=== PATIENT | female | born 1945 | race Caucasian/White ===

== ENCOUNTER 2016-08-23 08:06 | Emergency (ER) | payer MEDICARE, BC ==
[2016-08-23 08:20] VITALS: BP 160/81
--- NOTE | 2016-08-23 10:13 | EDM.PDOC ---
ED HPI GENERAL MEDICAL PROBLEM - General Chief Complaint: ENT Problem Stated Complaint: HURTS TO SWALLOW/PAIN IN THROAT & JAW LINE Time Seen by Provider: 08/23/16 08:43 Source of Information: Reports: Patient History Limitations: Reports: No Limitations - History of Present Illness INITIAL COMMENTS - FREE TEXT/NARRATIVE: History of present illness: [Patient has a history of lupus on prednisone and is presenting with a sore throat. Trouble swallowing. No fever. Has not been exposed to strep.] Review of systems: As per history of present illness and below otherwise all systems reviewed and negative. Past medical history: As per history of present illness and as reviewed below otherwise noncontributory. Surgical history: As per history of present illness and as reviewed below otherwise noncontributory. Social history: No reported history of drug or alcohol abuse. Family history: As per history of present illness and as reviewed below otherwise noncontributory. Physical exam: HEENT: Atraumatic, normocephalic, posterior pharynx is quite erythematous without exudate she did have a white tongue and so we did a BRICE prep on that which was negative. Lungs: Clear to auscultation, breath sounds equal bilaterally, chest nontender. Heart: S1S2, regular, negative for clicks, rubs, or JVD. Abdomen: Soft, nondistended, nontender. Negative for masses or hepatosplenomegaly. Negative for costovertebral tenderness. Pelvis: Stable nontender. Genitourinary: Deferred. Rectal: Deferred. Extremities: Atraumatic, . Neurovascular unremarkable. Neuro: Awake, alert, oriented. Exam nonfocal. Diagnostics: [Rapid strep is positive] Therapeutics: [] Impression: [Strep pharyngitis] Plan: [Keflex 500 mg 1 by mouth 4 times a day for 10 days. ] Definitive disposition and diagnosis as appropriate pending reevaluation and review of above. Throat Pain Score (Numeric/FACES): 9 - Related Data Allergies Allergy/AdvReac Type Severity Reaction Status Date / Time venom-honey bee Allergy Cannot Verified 08/31/14 07:22 [bee venom (honey bee)] Remember Home Meds: Home Meds Albuterol Sulfate [Albuterol Sulfate HFA] 2 puff INH Q4HR PRN 12/29/13 [History] Cholecalciferol (Vitamin D3) [Vitamin D] 2,000 unit PO DAILY 12/29/13 [History] Citalopram Hydrobromide [Celexa] 40 mg PO DAILY 12/29/13 [History] Cyanocobalamin (Vitamin B-12) [B-12] 500 mcg PO DAILY 12/29/13 [History] Fluticasone/Salmeterol [Advair 250-50 Diskus] 1 puff INH BID PRN 12/29/13 [ History] Hydrochlorothiazide/Losartan [Hyzaar 100-12.5 MG] 1 tab PO DAILY 12/29/13 [ History] Hydroxychloroquine Sulfate [Plaquenil] 400 mg PO DAILY 12/29/13 [History] Levothyroxine Sodium [Synthroid] 25 mcg PO DAILY 12/29/13 [History] Mirtazapine [Remeron] 15 mg PO BEDTIME 12/29/13 [History] Montelukast [Singulair] 10 mg PO DAILY PRN 12/29/13 [History] Ranitidine [Zantac] 150 mg PO DAILY PRN 12/29/13 [History] Simvastatin [Zocor] 80 mg PO DAILY 12/29/13 [History] Triamcinolone Acetonide [Kenalog 0.1% Crm] 1 applic TOP BID 12/29/13 [History] Zolpidem Tartrate [Ambien] 10 mg PO ASDIRECTED PRN 12/29/13 [History] clonazePAM [Klonopin] 1 mg PO BID PRN 12/29/13 [History] Past Medical History HEENT History: Reports: Impaired Vision Cardiovascular History: Reports: High Cholesterol, Hypertension Respiratory History: Reports: Asthma Other Musculoskeletal History: LUPUS AND SHOGREN'S DISEASE Immunologic History: Reports: Other (See Below) Other Immunologic History: lupus - Infectious Disease History Infectious Disease History: Reports: Chicken Pox, Measles, Mumps - Past Surgical History Other Cardiovascular Surgeries/Procedures: ANGIOGRAM GI Surgical History: Reports: Appendectomy Other Oncologic Surgeries/Procedures: HYSTERECTOMY Social & Family History - Tobacco Use Smoking Status *Q: Current Every Day Smoker Years of Tobacco use: 50 Packs/Tins Daily: 1 Used Tobacco, but Quit: No Month Tobacco Last Used: AUGUST Second Hand Smoke Exposure: No - Caffeine Use Caffeine Use: Reports: Coffee - Alcohol Use Days Per Week of Alcohol Use: 0 - Recreational Drug Use Recreational Drug Use: No ED ROS ENT - Review of Systems Review Of Systems: ROS reveals no pertinent complaints other than HPI. ED EXAM, ENT - Physical Exam Exam: See Below Course - Vital Signs Last Recorded V/S: Last Vital Signs Temp 37.4 C 08/23/16 08:18 Pulse 85 08/23/16 08:18 Resp 20 08/23/16 08:18 BP 160/81 H 08/23/16 08:18 Pulse Ox 94 L 08/23/16 08:18 Departure - Departure Time of Disposition: 10:11 Disposition: Home, Self-Care 01 Condition: Good Clinical Impression: Strep pharyngitis - Discharge Information Forms: ED Department Discharge Additional Instructions: Your strep test did come back positive so it's good that we did check for that. Again I apologize for the mixup on our testing. It's important to complete the full course of antibiotics that were prescribing. Sometimes strep can cause an abscess in the back of your throat. If this occurs a swelling develop in the back of your throat making it even more difficult to swallow and/or breathe and if this happens you need to return to the emergency room.
== END 2016-08-23 10:21 | disposition home or self-care (01) ==
LOC: JP.ED 08:06
DX: J02.0 Streptococcal pharyngitis (principal); H54.7 Unspecified visual loss; E78.00 Pure hypercholesterolemia, unspecified; I10 Essential (primary) hypertension; J45.909 Unspecified asthma, uncomplicated; F17.210 Nicotine dependence, cigarettes, uncomplicated; Z91.030 Bee allergy status; Z79.899 Other long term (current) drug therapy; Z90.710 Acquired absence of both cervix and uterus; Z90.49 Acquired absence of other specified parts of digestive tract
CPT/HCPCS: 87220; 87430; 99283

== ENCOUNTER 2022-11-12 08:10 | Day surgery (SDC) | payer MEDICARE, OTHER ==
[2022-11-12] MEDS ORDERED: Sodium Chloride 0.9% 10 ML Syringe FLUSH SCH (08:30)
[2022-11-12 09:29] VITALS: BP 138/60; PULSE 68
== END 2022-11-12 09:30 | disposition home or self-care (01) ==
LOC: JP.SDS 08:10
PROVIDERS: ATTEND Ophthalmology
DX: H26.9 Unspecified cataract (principal); J44.9 Chronic obstructive pulmonary disease, unspecified; I25.10 Atherosclerotic heart disease of native coronary artery without angina pectoris; F41.9 Anxiety disorder, unspecified; I12.9 Hypertensive chronic kidney disease with stage 1 through stage 4 chronic kidney disease, or unspecified chronic kidney disease; N18.9 Chronic kidney disease, unspecified; E03.9 Hypothyroidism, unspecified; R91.8 Other nonspecific abnormal finding of lung field; M32.9 Systemic lupus erythematosus, unspecified; E66.9 Obesity, unspecified; Z91.030 Bee allergy status; Z68.34 Body mass index [BMI] 34.0-34.9, adult
CPT/HCPCS: 66984; J3490; V2632

== ENCOUNTER 2022-11-26 07:55 | Day surgery (SDC) | payer MEDICARE, OTHER ==
[2022-11-26 08:31] VITALS: BP 162/75; PULSE 75
[2022-11-26] MEDS: Sodium Chloride 0.9% 10 ML Syringe FLUSH SCH (08:38)
== END 2022-11-26 09:30 | disposition home or self-care (01) ==
LOC: JP.SDS 07:55
PROVIDERS: ATTEND Ophthalmology
DX: H26.9 Unspecified cataract (principal); J44.9 Chronic obstructive pulmonary disease, unspecified; I25.10 Atherosclerotic heart disease of native coronary artery without angina pectoris; F41.9 Anxiety disorder, unspecified; I12.9 Hypertensive chronic kidney disease with stage 1 through stage 4 chronic kidney disease, or unspecified chronic kidney disease; E11.22 Type 2 diabetes mellitus with diabetic chronic kidney disease; N18.9 Chronic kidney disease, unspecified; E03.9 Hypothyroidism, unspecified; F17.200 Nicotine dependence, unspecified, uncomplicated
CPT/HCPCS: J3490; V2632

== ENCOUNTER 2025-01-18 06:52 | Day surgery (SDC) | payer MEDICARE, OTHER ==
[2025-01-18] MEDS ORDERED: fentaNYL 50 MCG/ML SDV ONE (07:28)
[2025-01-18] MEDS ORDERED: Propofol 200 MG/20 ML SDV ONE (07:28)
[2025-01-18] MEDS: Lactated Ringers 1,000 ML IV SCH (08:14)
[2025-01-18 09:53] VITALS: BP 159/78; PULSE 63
== END 2025-01-18 09:56 | disposition home or self-care (01) ==
LOC: JP.SDS 06:52
PROVIDERS: ATTEND Surgery
DX: Z12.11 Encounter for screening for malignant neoplasm of colon (principal); K57.30 Diverticulosis of large intestine without perforation or abscess without bleeding; E78.00 Pure hypercholesterolemia, unspecified; I10 Essential (primary) hypertension; E03.9 Hypothyroidism, unspecified; Z91.09 Other allergy status, other than to drugs and biological substances; Z91.030 Bee allergy status; Z79.899 Other long term (current) drug therapy; Z79.890 Hormone replacement therapy; Z79.84 Long term (current) use of oral hypoglycemic drugs
CPT/HCPCS: 00811; 45378; J2704; J3010; J7120